=== PATIENT | female | born 1990 | race Caucasian/White ===

== ENCOUNTER → 2018-12-29 | Outpatient (CLI) | payer BC, MEDICAID ==
[~2018-12-29] MED LIST: ALBU8.5H4 IH; CYCL10TA45 PO; FLUT1DIS28 IH; MNTL10T PO; PREN1TAB19 PO
== END ==
LOC: LAB FS 10:20
PROVIDERS: ATTEND Obstetrics & Gynecology
DX: Z32.01 Encounter for pregnancy test, result positive (principal)
CPT/HCPCS: 36415; 84702

== ENCOUNTER → 2018-12-31 | Outpatient (CLI) | payer BC, MEDICAID | LOC: LAB FS 10:35 | PROVIDERS: ATTEND Obstetrics & Gynecology | DX: Z32.01 Encounter for pregnancy test, result positive (principal) | CPT/HCPCS: 36415; 84702 ==

== ENCOUNTER → 2019-03-06 | Outpatient (CLI) | payer BC, MEDICAID ==
--- NOTE | 2019-03-06 14:40 | Diagnostic Imaging Report ---
INDICATION: Pneumonia. TIME OF EXAM: 2:26 p.m. COMPARISON: No prior studies are available for comparison. FINDINGS: The heart size is normal. The pulmonary vascularity is unremarkable. The lungs are clear. No infiltrate, effusion or pneumothorax is detected. IMPRESSION: No acute cardiopulmonary process is detected. Dictated by: Dictated on workstation # [id number]
== END ==
LOC: RAD FS 14:13
PROVIDERS: ATTEND Nurse Practitioner Family
DX: J18.9 Pneumonia, unspecified organism (principal)
CPT/HCPCS: 36415; 71046; 86738

== ENCOUNTER → 2019-09-03 | Outpatient (CLI) | payer BC, MEDICAID ==
--- NOTE | 2019-09-03 09:55 | Diagnostic Imaging Report ---
INDICATION: 2nd and 3rd metatarsal fracture, follow-up. Time of exam 8:52 AM No prior studies are available for comparison. Lucencies at the base of the 2nd, 3rd and 4th metatarsals are noted consistent with fracture lines. These appear to be nondisplaced. 1st and 5th metatarsals appear to be intact. Midfoot and hindfoot are unremarkable. Phalanges are intact. IMPRESSION: Nondisplaced fractures at the base of the 2nd, 3rd and 4th metatarsals. No other abnormalities detected. Dictated by: Dictated on workstation # [id number]
== END ==
LOC: RAD FS 08:47
PROVIDERS: ATTEND Nurse Practitioner
DX: S92.324D Nondisplaced fracture of second metatarsal bone, right foot, subsequent encounter for fracture with routine healing (principal); S92.334D Nondisplaced fracture of third metatarsal bone, right foot, subsequent encounter for fracture with routine healing
CPT/HCPCS: 73630

== ENCOUNTER → 2019-09-17 | Outpatient (CLI) | payer BC, MEDICAID ==
--- NOTE | 2019-09-17 12:21 | Diagnostic Imaging Report ---
INDICATION: Foot injury AP views of both feet show a nondisplaced fractures of the base of the right 2nd, 3rd and 4th metatarsals. These appear unchanged compared to exam dated 09/03/2019. Left foot is unremarkable. IMPRESSION: Fractures of the base of the 2nd, 3rd and 4th metatarsals appear stable compared to 09/03/2019. Dictated by: Dictated on workstation # [id number]
--- NOTE | 2019-09-17 12:36 | Diagnostic Imaging Report ---
INDICATION: Follow-up fracture. COMPARISON: 09/03/2019 FINDINGS: 3 radiographic views the right foot were obtained. Again identified are nonacute nondisplaced fractures involving the proximal portions of the 2nd, 3rd, and 4th metatarsals. There is no significant displacement of fracture fragments. There is no significant surrounding callus formation with periosteal reaction. No intra-articular extension is seen. No new acute osseous abnormalities identified. Joint spaces remain intact. IMPRESSION: 1. Redemonstration stable appearing fractures of the 2nd, 3rd, and 4th metatarsals. Dictated by: Dictated on workstation # [id number]
== END ==
LOC: RAD FS 09:44
PROVIDERS: ATTEND Nurse Practitioner
DX: S92.344D Nondisplaced fracture of fourth metatarsal bone, right foot, subsequent encounter for fracture with routine healing (principal); S92.324D Nondisplaced fracture of second metatarsal bone, right foot, subsequent encounter for fracture with routine healing; S92.334D Nondisplaced fracture of third metatarsal bone, right foot, subsequent encounter for fracture with routine healing
CPT/HCPCS: 73630

== ENCOUNTER → 2019-10-18 | Outpatient (CLI) | payer BC, MEDICAID ==
--- NOTE | 2019-10-18 13:20 | Diagnostic Imaging Report ---
INDICATION: Follow-up right foot fracture. TIME OF EXAM: 01:03 p.m. COMPARISON: Correlation is made with right foot radiograph from 09/17/2019. FINDINGS: There are healing fractures involving the proximal second, third and fourth metatarsals. There is blurring of the fracture lines consistent with healing, although fracture lines do remain barely visible. Alignment is normal. Phalanges are intact. Midfoot and hindfoot are unremarkable. IMPRESSION: Healing proximal second, third and fourth metatarsal fractures. Dictated by: Dictated on workstation # [id number]
== END ==
LOC: RAD FS 12:53
PROVIDERS: ATTEND Nurse Practitioner
DX: S92.354D Nondisplaced fracture of fifth metatarsal bone, right foot, subsequent encounter for fracture with routine healing (principal); S92.344D Nondisplaced fracture of fourth metatarsal bone, right foot, subsequent encounter for fracture with routine healing; S92.324D Nondisplaced fracture of second metatarsal bone, right foot, subsequent encounter for fracture with routine healing; S92.334D Nondisplaced fracture of third metatarsal bone, right foot, subsequent encounter for fracture with routine healing
CPT/HCPCS: 73630

== ENCOUNTER → 2019-12-03 | Outpatient (CLI) | payer BC, MEDICAID ==
--- NOTE | 2019-12-03 09:47 | Diagnostic Imaging Report ---
EXAMINATION: Right foot at 9:02 AM. INDICATION: Fracture of the foot. TECHNIQUE: Three views of the right foot were obtained. FINDINGS: The prior exam of 10/18/2019 noted healing fractures of the bases of the 2nd, 3rd, and 4th metatarsals. On this exam, those fractures appear to have healed completely. There is only mild residual deformity of the bases of the 2nd, 3rd, and 4th metatarsals. No other fracture or acute bony abnormality is identified. The Lisfranc joint seems well maintained. The soft tissues are unremarkable. IMPRESSION: The fractures involving the bases of the 2nd, 3rd, and 4th metatarsals seen previously appear to have healed. There is no acute bony abnormality noted. Dictated by: Dictated on workstation # [id number]
== END ==
LOC: RAD FS 08:40
PROVIDERS: ATTEND Nurse Practitioner
DX: S92.354D Nondisplaced fracture of fifth metatarsal bone, right foot, subsequent encounter for fracture with routine healing (principal); S92.344D Nondisplaced fracture of fourth metatarsal bone, right foot, subsequent encounter for fracture with routine healing; S92.324D Nondisplaced fracture of second metatarsal bone, right foot, subsequent encounter for fracture with routine healing; S92.334D Nondisplaced fracture of third metatarsal bone, right foot, subsequent encounter for fracture with routine healing; X58.XXXD Exposure to other specified factors, subsequent encounter
CPT/HCPCS: 73630

== ENCOUNTER → 2021-06-09 | Outpatient (CLI) | payer BC, MEDICAID ==
--- NOTE | 2021-06-09 17:35 | Diagnostic Imaging Report ---
Indication: Right foot pain. Time of Exam: 3:33 PM Three views right foot were obtained. Metatarsals are intact. Phalanges are intact. Midfoot and hindfoot are unremarkable. No fractures are seen. IMPRESSION: No acute bony abnormality is detected. Dictated by: Dictated on workstation # [id number]
== END ==
LOC: LAB FS 15:13
PROVIDERS: ATTEND Nurse Practitioner
DX: M79.671 Pain in right foot (principal)
CPT/HCPCS: 73630